=== PATIENT | female | born 1975 | race African-American/Black ===

== ENCOUNTER 2021-05-02 23:47 | Emergency (ER) | payer BC, SELFPAY ==
--- NOTE | ~2021-05-02 | CT_ITS ---
EXAMINATION: CT abdomen pelvis w con DATE: 05/03/2021 01:37 INDICATION: Abdominal pain for one week TECHNIQUE: Computed tomography (CT) of the abdomen and pelvis was performed with 100 cc Omnipaque 350 intravenous contrast. The dose-length product was 457.27 mGy-cm. Automated exposure control and iter ative reconstruction technique were employed. COMPARISON: No prior studies for comparison. FINDINGS: Lung bases are unremarkable. Heart size normal. No significant pleural or pericardial effus ion. There are calcified granulomas of the liver. There are mildly enlarged mesenteric lymph nodes, l ikely reactive. The spleen, pancreas, adrenal glands and right kidney are unremarkable. There is a 2.5 cm left renal cyst. There is a dilated tubular structure in the right adnexa, possibly hydrosalpinx. No free air or free fluid. No acute osseous abnormality. Normal appendix. IMPRESSION: 1. Mildly increased number and size of mesenteric lymph nodes, likely reactive. 2: Dilated right adnexal tubular structure, suspicious for hydrosalpinx. Consider correlation with u ltrasound. Reviewed, dictated and finalized at location A. OR TECHNICAL PROGRAM MANAGER IMPRESSION: 1. Mildly increased number and size of mesenteric lymph nodes, likely reactive. 2: Dilated right adnexal tubular structure, suspicious for hydrosalpinx. Consi beverly correlation with ultrasound.
[2021-05-03 00:01] VITALS: BP 121/76; PULSE 87; RESP 16; TEMP 37; O2SAT 100
--- NOTE | 2021-05-03 00:12 | ECG_ITS ---
Measurements Intervals [place] Rate: 73 P: 60 MA: 209 QRS: 45 QRSD: 86 T: 49 QT: 372 QTc: 410 Interpretive Statements SINUS RHYTHM NO PREVIOUS ECG AVAILABLE FOR COMPARISON Electronically Signed On 05-03-2021 12:23:05 HATCHERY HELPER by Stewart Hightower M.D.
[2021-05-03 00:37] LABS: Basophils Absolute Auto 0.1 K/mm3 (0.0-0.1); Basophils Percent Auto 0.7 % (0.2-1.2); Eosinophils Absolute Auto 0.2 K/mm3 (0-0.3); Eosinophils Percent Auto 3.2 % (0-4.4); Hematocrit 34.8 % (37.0-47.0); Hemoglobin 10.6 g/dL (12.0-15.0); Immature Granulocyte Absolute 0.01 K/mm3 (0.00-0.031); Immature Granulocyte Percent A 0.1 % (0-0.5); Lymphocytes Absolute Auto 2.98 K/mm3 (0.9-3.2); Lymphocytes Percent Auto 40.9 % (18.3-44.2); Mean Corpuscular HGB Conc 30.5 g/dl (32-36); Mean Corpuscular Hemoglobin 23.3 pg (26-34); Mean Corpuscular Volume 76.7 fl (80-100); Mean Platelet Volume 10.4 fl (7.4-10.4); Monocytes Absolute Auto 0.6 K/mm3 (0.1-0.6); Monocytes Percent Auto 7.7 % (2.6-8.5); Neutrophils Absolute Auto 3.5 K/mm3 (1.3-6.7); Neutrophils Percent Auto 47.4 % (45.5-73.1); Platelet Count Result 296 k/mm3 (150-375); Red Blood Count 4.54 M/mm3 (4.2-5.4); Red Cell Distribution Width 16.9 % (11.5-14.5); White Blood Count 7.3 K/mm3 (4.5-10.0)
[2021-05-03] MEDS: ONDANSETRON INJ 4 MG/2 ML VIAL IV PUSH ×2 (00:46→02:53)
[2021-05-03] MEDS: FAMOTIDINE 20 MG/2 ML VIAL IV PUSH (00:46)
[2021-05-03] MEDS: SODIUM CHLORIDE 0.9% IV 1,000 ML 999 ML IV CONT (00:47)
[2021-05-03 00:49] LABS: Alanine Aminotransferase 23 U/L (4-35); Albumin Level 4.8 g/dL (3.5-5.1); Alkaline Phosphatase 59 U/L (38-126); Anion Gap 11 mmol/L (8-16); Aspartate Amino Transferase 37 U/L (14-36); Bilirubin,Total 0.4 mg/dL (0.2-1.3); Blood Urea Nitrogen 14 mg/dL (7-17); Calcium 9.7 mg/dL (8.4-10.2); Carbon Dioxide 27 mmol/L (22-30); Chloride 104 mmol/L (98-107); Estimated CRCL calculation 85 ml/min; Estimated Glomerular Filt Rate > 60; Glucose 95 mg/dL (65-110); Lipase 68 U/L (23-300); Potassium 3.3 mmol/L (3.4-5.0); Sodium 142 mmol/L (137-145)
[2021-05-03 00:55] LABS: Add Urine Microscopic? YES; Appearance Urine Clear (Clear); Bacteria Urine Trace /hpf; Bilirubin Urine Negative (Negative); Blood Urine Negative (Negative); Color Urine Yellow (Yellow); Glucose Urine UA Negative (Negative); Ketones Urine Negative (Negative); Leukocyte Esterase Ur Trace LEU/UL (Negative); Mucus Urine Rare /lpf; Nitrate Urine Negative (Negative); Protein Urine Negative (Negative); Specific Grav Ur 1.025 (1.001-1.035); Squamous Epithelial Cell Urine Many /hpf (Few); Urobilinogen Urine Negative mg/dL (<2.0); WBC Urine 0-3 /hpf
[2021-05-03 01:01] LABS: Troponin I < 0.012 ng/mL (0.000-0.034)
[2021-05-03] MEDS: POTASSIUM CHLORIDE 20 MEQ TABLET 40 MEQ PO (02:53)
[2021-05-03 02:55] VITALS: BP 104/76; PULSE 90; RESP 16; O2SAT 100
--- NOTE | 2021-05-03 03:09 | ED.GENADULT ---
HPI - General Adult General Chief complaint: Abdominal Pain <Nancy Raya APRN - Last Filed: 05/03/21 03:14> Stated complaint: abdominal pain/nausea <Nancy Raya APRN - Last Filed: 05/03/21 03:14> Time Seen by Provider: 05/03/21 00:01 <Nancy Raya APRN - Last Filed: 05/03/21 03:14> Source: patient <Nancy Raya APRN - Last Filed: 05/03/21 03:14> Mode of arrival: ambulatory <Nancy Raya APRN - Last Filed: 05/03/21 03:14> Limitations: no limitations <Nancy Raya APRN - Last Filed: 05/03/21 03:14> History of Present Illness HPI narrative: 45-year-old female presents today with complaints of generalized abdominal pain that started on Sunday and is accompanied with nausea. Patient has noted decreased oral intake but no diarrhea. Patient denies any sick contacts, runny nose, cough, chills, fever, shortness of breath. Patient's history significant for tubal ligation. Patient states last movement bowel movement was yesterday and was normal for her. Patient states that she has BMs every other day. <Nancy Raya APRN - Last Filed: 05/03/21 03:14> Related Data Home medications: Home Medications Medication Instructions Recorded Confirmed amlodipine 5 mg PO DAILY 05/03/21 <Nancy Raya WEARING [employer]PAR[employer] - Last Filed: 05/03/21 03:14> Allergies/adverse reactions: Allergies Allergy/AdvReac Type Severity Reaction Status Date / Time No Known Drug Allergies Allergy Unknown Unknown Verified 05/03/21 00:39 <Nancy Raya WEARING [employer] - Last Filed: 05/03/21 03:14> Review of Systems Review of Systems: CONSTITUTIONAL: Denies fever, chills, or sweats. EYES: Denies visual changes, redness, or discharge. ENT: Denies rhinorrhea, congestion, sore throat, or otalgia. CARDIOVASCULAR: Denies chest pain, palpitations, or edema. RESPIRATORY: Denies cough or dyspnea. GASTROINTESTINAL: Abdominal pain and nausea. Denies vomiting, or diarrhea. GENITOURINARY: Denies dysuria or hematuria. SKIN: Denies rash or itching. MUSCULOSKELETAL: Denies back pain, joint pain, or myalgia. NEUROLOGIC: Denies headache, numbness, dizziness, or weakness. PSYCHIATRIC: Denies anxiety or depression. <Nancy Raya APRN - Last Filed: 05/03/21 03:14> Exam Narrative: GENERAL: Well-appearing, well-nourished, and in no acute distress. HEAD: Normocephalic, atraumatic. EYES: PERRLA and EOMI. ENT: Nares clear, no rhinorrhea or epistaxis. Mucous membranes moist. Oropharynx without tonsillar hypertrophy exudate or other lesions. Bilateral TMs pearly hernandez nonbulging NECK: Supple. No adenopathy or masses. No carotid bruits or JVD CHEST: Clear to auscultation. No respiratory distress. No wheezes rales or rhonchi HEART: Regular rate and rhythm. No murmur heard. Normal peripheral pulses. ABDOMEN: Soft, generalized tenderness to palpation, nondistended, normal active bowel sounds. EXTREMITIES: Normal range of motion. No edema. SKIN: Warm, dry, no rash. NEURO: No focal deficits. Alert and oriented x3. PSYCH: Normal mood and affect. <Nancy Raya APRN - Last Filed: 05/03/21 03:14> Course Reevaluation(s) Reevaluation #1: Patient still with nausea after IV fluids and Zofran. Results reviewed with patient we'll give another dose of Zofran and discharged home. She is aware to follow-up with OB. Return for any new or emergent concerns. <Nancy Raya APRN - Last Filed: 05/03/21 03:14> Date: 05/03/21 <Nancy Raya APRN - Last Filed: 05/03/21 03:14> Time: 02:25 <Nancy Raya APRN - Last Filed: 05/03/21 03:14> Vital Signs Vital signs: Vital Signs Temperature 98.6 F 05/03/21 00:01 Pulse Rate 87 05/03/21 00:01 Respiratory Rate 16 05/03/21 00:01 Blood Pressure 121/76 05/03/21 00:01 Pulse Oximetry 100 05/03/21 00:01 Temperature 98.6 F 05/03/21 00:01 Pulse Rate 90 05/03/21 02:55 Respiratory Rate 16 05/03/21 02:55 Blood Pressure 104/76 05/03/21 02:5
== END 2021-05-03 03:03 | disposition home or self-care (01) ==
PROVIDERS: Emergency Medicine; Emergency Provider Nurse Practitioner Family
DX: R10.33 Periumbilical pain (principal); R93.89 Abnormal findings on diagnostic imaging of other specified body structures
CPT/HCPCS: 36415; 74177; 80053; 81001; 81025; 83690; 84484; 85025; 93005; 96361; 96374; 96375; 96376; 99284; A9270; J2405; J7030; Q9967